=== PATIENT | male | born 1970 | race Caucasian/White ===

== ENCOUNTER 2019-08-13 10:42 | Emergency (ER) | payer OTHER ==
--- NOTE | 2019-08-13 11:47 | ED Physician Documentation ---
PD HPI ABD PAIN - Stated complaint Stated Complaint: ABD PX - Chief complaint Chief Complaint: Abd Pain - History obtained from History obtained from: Patient - Additional information Additional information: Patient comes emergency department complaining of abdominal pain that started this morning. Patient has a history of diverticulitis, and states that it feels exactly like that. Patient has actually had a short hemicolectomy for the diverticulitis a couple of years ago but states he had a recurrence of his diverticulitis several months ago. Patient states that he is felt nauseated but not had vomiting. No diarrhea. No blood in his stools patient denies any fevers or chills. He states that he thinks his appendix may have been removed during his first bout of diverticulitis, but he is not sure. Patient states that he is otherwise healthy. He denies any dysuria or hematuria. No history of kidney stones. No other complaints at this time. Review of Systems Ten Systems: 10 systems reviewed and negative Constitutional: reports: Reviewed and negative Eyes: reports: Reviewed and negative Ears: reports: Reviewed and negative Nose: reports: Reviewed and negative Throat: reports: Reviewed and negative Cardiac: reports: Reviewed and negative Respiratory: reports: Reviewed and negative GI: reports: Abdominal Pain, Nausea : reports: Reviewed and negative Skin: reports: Reviewed and negative Musculoskeletal: reports: Reviewed and negative Neurologic: reports: Reviewed and negative Psychiatric: reports: Reviewed and negative Endocrine: reports: Reviewed and negative Immunocompromised: reports: Reviewed and negative PD PAST MEDICAL HISTORY - Past Medical History Past Medical History: Yes Cardiovascular: High cholesterol Respiratory: None Neuro: None Endocrine/Autoimmune: None GI: Diverticulitis : None HEENT: None Psych: Anxiety Musculoskeletal: None Derm: Psoriasis - Past Surgical History Past Surgical History: No - Present Medications Home Medications: Ambulatory Orders Medication Instructions Recorded Confirmed Levofloxacin [Levaquin] 500 mg PO DAILY #10 tablet 08/13/19 metroNIDAZOLE [Flagyl] 500 mg PO BID #20 tablet 08/13/19 - Allergies Allergies/Adverse Reactions: Allergies Allergy/AdvReac Type Severity Reaction Status Date / Time No Known Drug Allergies Allergy Verified 08/13/19 10:53 - Social History Does the pt smoke?: No Smoking Status: Never smoker Does the pt have substance abuse?: No PD ED PE NORMAL - Vitals Vital signs reviewed: Yes - General General: Alert and oriented X 3, No acute distress - HEENT HEENT: Atraumatic, PERRL, EOMI, Moist mucous membranes - Neck Neck: Supple, no meningeal sign - Cardiac Cardiac: RRR, No murmur - Respiratory Respiratory: No respiratory distress, Clear bilaterally - Abdomen Abdomen: Soft, Non distended, Other (Moderate left lower quadrant tenderness, mild right lower quadrant tenderness. No rebound or guarding.) - Derm Derm: Normal color, Warm and dry, No rash - Extremities Extremities: No deformity, No edema - Neuro Neuro: Alert and oriented X 3, Other (Grossly normal) - Psych Psych: Normal mood, Normal affect Results - Vitals Vitals: Vital Signs - 24 hr 08/13/19 08/13/19 08/13/19 10:49 14:46 14:50 Temperature 36.8 C 36.6 C Heart Rate 74 78 76 Respiratory 16 20 14 Rate Blood Pressure 138/76 H 136/74 H 128/68 O2 Saturation 98 98 97 Oxygen O2 Source Room air - Labs Labs: Laboratory Tests 08/13/19 08/13/19 11:40 11:40 WBC 7.5 RBC 4.34 L Hgb 13.9 L Hct 41.7 L MCV 96.1 H MCH 32.0 H MCHC 33.3 RDW 13.0 Plt Count 301 MPV 10.3 Neut # (Auto) 4.6 Lymph # (Auto) 1.8 [place] # (Auto) 0.9 Eos # (Auto) 0.2 Baso # (Auto) 0.0 Absolute Nucleated RBC 0.00 Nucleated RBC % 0.0 Sodium 139 Potassium 3.8 Chloride 104 Carbon Dioxide 24 Anion Gap 11.0 BUN 15 Creatinine 0.7 Estimated GFR (MDRD) 120 Glucose 111 H Calcium 9.1 Total Bilirubin 1.0 AST 38 ALT 34 Alkaline Phosphatase 56 Total Protein 7.2 Albumin 4.6 Globulin 2.6 Albumin/Globulin Ratio 1.8 Lipase 29 - Rads (name of study) CT abd/pelvis Radiology: Final report received, EMP read indepedently, See rad report (Diverticuli without diverticulitis. Appendectomy and sigmoidectomy. No acute inflammation to explain abdominal pain patient is having. Few small renal stones in bilateral kidneys.) PD MEDICAL DECISION MAKING - ED course Complexity details: reviewed results, re-evaluated patient, considered differential, d/w patient ED course: Patient was worked up with labs and CT scan of the abdomen and pelvis, based on his current and distant history.He declined analgesia in the emergency department. The patient's work-up was negative in the emergency department. The patient was concerned that his past 2 episodes of diverticulitis have initially been undetected, despite symptoms, only to flareup worse in the next day or 2 afterward, resulting in the need for hospital admission, antibiotics, and surgery. It is not clear if that is what is going on at this point in time, but I discussed with the patient that I would give him a prescription for antibiotics and that I would prefer at this point that he wait to start them and see if his symptoms are worsening over the next day or 2. If so, then he may start the antibiotics. Alternatively, he may return to the emergency department for reevaluation. We have discussed home management of symptoms, as well as the usual indications for return. Departure - Departure Disposition: 01 Home, Self Care Clinical Impression: Abdominal pain Qualifiers: Abdominal location: lower abdomen, unspecified Qualified Code(s): R10.30 - Lower abdominal pain, unspecified Condition: Stable Instructions: ED Abdominal Pain Unkn Cause Male Prescriptions: Levofloxacin [Levaquin] 500 mg PO DAILY #10 tablet metroNIDAZOLE [Flagyl] 500 mg PO BID #20 tablet Comments: Your labs and CT scan look good. Your CT does confirm that you have had an appendectomy. You have diverticuli, the pouches that get inflamed and cause diverticulitis, but right now, there is no evidence of inflammation. Given your past experience, you will be given a prescription for the appropriate antibiotics for diverticulitis. If your pain gets worse, you should start the antibiotics. Discharge Date/Time: 08/13/19 14:51
[2019-08-13 11:58] LABS: BASOPHILS % (AUTO) 0.5 %; EOSINOPHILS # (AUTO) 0.2 10^3/uL (0.0-0.7); EOSINOPHILS % (AUTO) 2.3 %; HGB - HEMOGLOBIN 13.9 g/dL (14.0-18.0); LYMPHOCYTES # (AUTO) 1.8 10^3/uL (1.5-3.5); LYMPHOCYTES % (AUTO) 23.4 %; MEAN CORPUSCULAR HGB CONC 33.3 g/dL (32.0-36.0); MEAN CORPUSCULAR VOLUME 96.1 fL (80.0-94.0); MEAN PLATELET VOLUME 10.3 fL (7.4-11.4); MONOCYTES # (AUTO) 0.9 10^3/uL (0.0-1.0); MONOCYTES % (AUTO) 12.2 %; NEUTROPHILS # (AUTO) 4.6 10^3/uL (1.5-6.6); NEUTROPHILS % (AUTO) 61.5 %; PLT - PLATELET COUNT 301 10^3/uL (130-450); RED BLOOD COUNT 4.34 10^6/uL (4.70-6.10); WHITE BLOOD COUNT 7.5 x10^3/uL (4.8-10.8)
[2019-08-13 12:09] LABS: ALBUMIN 4.6 g/dL (3.2-5.5); ALBUMIN/GLOBULIN RATIO 1.8 (1.0-2.2); CALCIUM 9.1 mg/dL (8.5-10.3); CREATININE 0.7 mg/dL (0.6-1.2); TOTAL PROTEIN 7.2 g/dL (6.7-8.2)
[2019-08-13] MEDS ORDERED: IOVERSOL 320 100 ML VIAL IVP ONE ×2 (12:54→14:48)
--- NOTE | 2019-08-13 14:00 | CT Report ---
Reason: RLQ pain with left tenderness Procedure Date: 08/13/2019 Accession Number: [id number] / [id number] Procedure: CT - Abdomen/Pelvis W CPT Code: Final Report FULL RESULT: EXAM: CT ABDOMEN AND PELVIS EXAM DATE: 08/13/2019 01:17 PM. CLINICAL HISTORY: RLQ pain with left tenderness. COMPARISONS: None. TECHNIQUE: Routine helical CT imaging was performed through the abdomen and pelvis. IV contrast: OPTIRAY 320. Enteric contrast: No. Reconstructions: Coronal and sagittal. In accordance with CT protocol optimization, one or more of the following dose reduction techniques were utilized for this exam: automated exposure control, adjustment of mA and/or KV based on patient size, or use of iterative reconstructive technique. FINDINGS: Lung Bases: Clear. Liver: Diffuse low attenuation of the hepatic parenchyma with respect to the spleen, indicating steatosis. No focal hepatic lesion. Gallbladder/Bile Ducts: Unremarkable. No visualized stones or biliary ductal dilatation. Spleen: Normal. Pancreas: Normal. Adrenal Glands: Normal. Kidneys and Ureters: A 7 mm circumscribed hypoattenuating focus in the left upper pole is too small to characterize further but likely represents a cyst (3/18); no imaging follow-up is recommended per consensus recommendations based on imaging criteria. Tiny nonobstructive intrarenal calculi measuring 4 mm in the right upper pole (3/26) and 3 mm in the left midportion (3/28). No hydronephrosis or hydroureter. Peritoneal Cavity/Bowel: Post segmental sigmoidectomy colocolic anastomosis in the posterior pelvis. Few scattered colonic diverticula. No evidence for bowel obstruction or acute inflammatory process. The appendix is surgically absent. No free fluid, pneumoperitoneum, or adenopathy. Pelvic Organs: The bladder and visualized reproductive organs are within normal limits. Vasculature: Mild atherosclerotic calcifications within the aorta and iliac arteries. Bones: No significant abnormality. Other: None. IMPRESSION: 1. Post segmental sigmoidectomy and appendectomy. 2. No acute inflammatory or obstructive process identified to explain abdominal pain. 3. Few scattered colonic diverticula, without CT evidence for acute diverticulitis. 4. Tiny nonobstructive bilateral intrarenal calculi. [facility]
[2019-08-13 14:51] VITALS: BP 128/68
== END 2019-08-13 14:51 | disposition home or self-care (01) ==
LOC: ED 10:42
DX: R10.30 Lower abdominal pain, unspecified (principal)
CPT/HCPCS: 36415; 74177; 80053; 83690; 85025; 99284; Q9967